=== PATIENT | female | born 1985 | race African-American/Black ===

== ENCOUNTER 2024-08-15 12:41 | Emergency (ER) | payer OTHER, SELFPAY ==
[2024-08-15] VITALS (9 sets, daily range): BP systolic 95–118; BP diastolic 47–69
--- NOTE | 2024-08-15 13:09 | ED.GENMED ---
History of Present Illness
<Jose Davis DO - Last Filed: 08/15/24 15:23>
General
Chief Complaint: Abdominal Pain
Source: patient
Exam Limitations: none
Time Seen by Provider: 08/15/24 12:57
Nursing documentation reviewed up to this point in time: agreed with
History of Present Illness
History of Present Illness:
38-year-old female presents Emergency Department complaining of pelvic pain ongoing since yesterday. She was seen at [facility] last night, and was told she has an ovarian cyst. She was told it was a hemorrhagic cyst and had ruptured.
Past History
<Jose Davis DO - Last Filed: 08/15/24 15:23>
Past History
ED Past Medical History: Other (Back pain)
ED Past Surgical History: Other ([place] teeth)
Social History
Tobacco: Non-smoker
Alcohol: None
Drug: None
Personal: Partner
Employment: Employed
Review of Systems
<Jose Davis, DO - Last Filed: 08/15/24 15:23>
Review of Systems
Allergies reviewed?: Yes
All Other Systems: Not applicable
Constitutional: Reports no symptoms
EENT: Reports no symptoms
Respiratory: Reports no symptoms
Cardiac: Reports no symptoms
ABD/GI: Reports no symptoms
: Reports other (Pelvic pain)
Musculoskeletal: Reports no symptoms
Skin: Reports no symptoms
Neurological: Reports no symptoms
Endocrine: Reports no symptoms
Hematologic/Lymphatic: Reports no symptoms
Psychiatric: Reports no symptoms
Phy Exam
<Jose Davis, DO - Last Filed: 08/15/24 15:23>
Physical Exam
Physical Exam:
Physical Exam
General: no apparent distress, not acutely ill
Neck: supple. no meningeal signs. normal posterior pharynx
Heart: s1/s2 regular rate and rhythm, no murmur. equal radial
pulses.
HEENT: Pupils equal round reactive to light, EOMI
Lungs: no acute respiratory distress. clear bilaterally
Abdomen: normal bowel sounds. Mild suprapubic tenderness, no rebound or guarding. no CVAT
Neuro: alert and oriented. no focal neurological deficits
Skin: no rash
Psychiatric: well kept. interactive and cooperative
Extremities: no edema. no calf tenderness. negative homans. good distal pulses
Course
<Jose Davis, DO - Last Filed: 08/15/24 15:23>
Orders/Labs/Results
Orders:
Orders
08/15/24 13:06
IV Insert/Care/Rem.- Treatment PRN
Pelvis & Transvaginal US [US Pelvis W Transvag Combined] Urgent
Comment:
Reason For Exam: pelvic pain, history of hemorrhagic cyst
08/15/24 13:07
Test Result ONCE
08/15/24 13:19
Complete Blood Count/With Diff Urgent
Comprehensive Metabolic Panel Urgent
HCG, Serum Qualitative Screen Urgent
08/15/24 14:19
Ketorolac [Toradol] 15 mg IV NOW STA
08/15/24 16:30
0.9% Sodium Chloride 1000 ml [Nss] 1,000 ml IV BOLUS
HYDROmorphone [Dilaudid] 0.5 mg IV NOW STA
08/15/24 18:25
HYDROmorphone [Dilaudid] 0.5 mg IV NOW STA
Simethicone [Mylicon] 80 mg PO NOW STA
Abnormal Lab Results
08/15/24
13:19
RBC 3.60 L 10^6/uL
(4.20-5.40)
Hgb 11.4 L g/dL
(12.0-16.0)
Hct 32.2 L %
(37.0-47.0)
MCH 31.7 H pg
(27.0-31.0)
Absolute Neuts (auto) 8.5 H 10^3/uL
(1.4-6.5)
Neutrophils % 80.5 H %
(42.2-75.2)
Lymphocytes % 14.7 L %
(20.5-51.1)
08/15/24 13:19
08/15/24 13:19
Vital Signs
Initial and Last Documented VS:
Initial Vital Signs
Temp Pulse Resp BP Pulse Ox
98.3 F 85 18 103/69 99
08/15/24 12:42 08/15/24 12:42 08/15/24 12:42 08/15/24 12:42 08/15/24 12:42
Last Documented Vital Signs
Temp Pulse Resp BP Pulse Ox
98.3 F 72 16 103/62 99
08/15/24 12:42 08/15/24 13:25 08/15/24 13:25 08/15/24 20:00 08/15/24 19:59
Moelt;Yannick Simons DO - Last Filed: 08/15/24 22:31>
Orders/Labs/Results
Orders:
Orders
08/15/24 13:06
IV Insert/Care/Rem.- Treatment PRN
Pelvis & Transvaginal US [US Pelvis W Transvag Combined] Urgent
Comment:
Reason For Exam: pelvic pain, history of hemorrhagic cyst
08/15/24 13:07
Test Result ONCE
08/15/24 13:19
Complete Blood Count/With Diff Urgent
Comprehensive Metabolic Panel Urgent
HCG, Serum Qualitative Screen Urgent
08/15/24 14:19
Ketorolac [Toradol] 15 mg IV NOW STA
08/15/24 16:30
0.9% Sodium Chloride 1000 ml [Nss] 1,000 ml IV BOLUS
HYDROmorphone [Dilaudid] 0.5 mg IV NOW STA
08/15/24 18:25
HYDROmorphone [Dilaudid] 0.5 mg IV NOW STA
Simethicone [Mylicon] 80 mg PO NOW STA
Abnormal Lab Results
08/15/24
13:19
RBC 3.60 L 10^6/uL
(4.20-5.40)
Hgb 11.4 L g/dL
(12.0-16.0)
Hct 32.2 L %
(37.0-47.0)
MCH 31.7 H pg
(27.0-31.0)
Absolute Neuts (auto) 8.5 H 10^3/uL
(1.4-6.5)
Neutrophils % 80.5 H %
(42.2-75.2)
Lymphocytes % 14.7 L %
(20.5-51.1)
08/15/24 13:19
08/15/24 13:19
Vital Signs
Initial and Last Documented VS:
Initial Vital Signs
Temp Pulse Resp BP Pulse Ox
98.3 F 85 18 103/69 99
08/15/24 12:42 08/15/24 12:42 08/15/24 12:42 08/15/24 12:42 08/15/24 12:42
Last Documented Vital Signs
Temp Pulse Resp BP Pulse Ox
98.3 F 72 16 103/62 99
08/15/24 12:42 08/15/24 13:25 08/15/24 13:25 08/15/24 20:00 08/15/24 19:59
<Yannick Simons DO - Last Filed: 08/15/24 22:31>
*Critical Care Note
Total Time (30-74mins, 75-104mins- exclusive of procedures): Not Applicable
<Yannick Simons DO - Last Filed: 08/15/24 22:31>
Update Note
Update Note:
Patient received at signout at 2 PM. Patient with pelvic pain that is persistent and significant. Plan at signout was to await results of ultrasound and disposition from there.
Patient's ultrasound shows good flow bilaterally with some free fluid in the pelvis.
I reevaluated the patient she continues to have significant pain. She is tearful and frustrated. She was able to pull up the results of her testing at [facility] from yesterday on her patient portal. CT of the abdomen pelvis showed mild
hemoperitoneum and complex cystic structure.
Discussed case with Dr. Jain who is on-call for gynecology. I sent images of the patient's reports from her phone to Dr. Jain. Patient's hemoglobin is essentially unchanged. Given these findings she believes the patient is stable for
outpatient management. Recommends further pain management here in the emergency room and hopefully patient will be able to go home. After some Dilaudid, IV fluids and simethicone the patient is feeling much better. We will discharge her on
oxycodone. Patient received a prescription for tramadol from [facility] which did not help her pain whatsoever.
ED Attending Note
<Jose Davis, DO - Last Filed: 08/15/24 15:23>
-
Portions of this chart may have been created with voice recognition software.� Occasional wrong word or��sound alike� substitutions may have occurred due to the inherent limitations of voice recognition software.
Discharge Plan
Departure
Patient Disposition: Home (Routine Discharge)
Date of Disposition: 08/15/24
Time of Disposition: 19:48
Patient with high blood pressure during this ER visit?: No
Condition: Good
Discharge Problem:
Pelvic pain, Hemorrhagic cyst of left ovary
Instructions: Ovarian cyst - ED discharge instructions, Abdominal Pain
Prescriptions:
New
oxycodone 5 mg tablet
5 mg PO Q6H PRN (Reason: Pain) Qty: 20 0RF
ondansetron 4 mg tablet,disintegrating
4 mg PO Q8H PRN (Reason: nausea and vomiting) 3 Days Qty: 9 0RF
No Action
methylprednisolone [Medrol ([place])] 4 MG tablets,dose pack
4 tab PO . DIRECT Qty: 1 0RF
Rx Instructions:
take as directed
cyclobenzaprine 10 MG tablet
10 mg PO TIDPRN PRN (Reason: low back pain/muscle spasm) Qty: 12 0RF
Referrals:
Lucio Gonzales MD [Family Provider] -
Activity Restrictions/Additional Instructions:
Your pelvic pain is from a hemorrhagic cyst. The blood in the intra-abdominal cavity can be quite irritating. This will take a couple days to resorb but I do believe you will start feeling better each day. Return to the emergency room if you feel
your pain is getting worse. You can take Tylenol 650 mg every 6 hours as well as ibuprofen 600 mg every 6 hours for pain. If you need additional pain medicine I have sent a prescription for oxycodone 5 mg. You can take 1 every 6 hours of that as
well. Follow-up with your [facility].
Interventions
Interventions:
*Risk Screen - Suicide Last Done: 08/15/24 12:42
*General Assessment Last Done: 08/15/24 12:42
*Neglect/Abuse Screening Last Done: 08/15/24 12:42
*ED- Fall Risk Assessment Last Done: 08/15/24 13:25
*ED COVID-19 Vaccine History Last Done: 08/15/24 12:53
*Nursing Disposition Last Done: 08/15/24 20:06
WG-Hxgikk-Xxlrqwwlmk Assessment Last Done: 08/15/24 13:23
Discharge Date and Time
Discharge Date/Time: 08/15/24 20:11
Print Language: [id number]
[2024-08-15 13:29] LABS: % Basophils 0.2 % (0-2); % Eosinophils 0.2 % (0-6); % Immature Granulocytes 0.3 % (0-0.5); % Lymphocytes 14.7 % (20.5-51.1); % Monocytes 4.1 % (1.7-9.3); % Neutrophils 80.5 % (42.2-75.2); Absolute Lymphocytes 1.6 10^3/uL (1.2-3.4); Absolute Monocytes 0.4 10^3/uL (0.1-0.6); Absolute Neutrophils 8.5 10^3/uL (1.4-6.5); Hematocrit 32.2 % (37.0-47.0); Hemoglobin 11.4 g/dL (12.0-16.0); Mean Corp Hgb Conc. 35.4 g/dL (33.0-37.0); Mean Corpuscular Hgb 31.7 pg (27.0-31.0); Mean Corpuscular Volume 89.4 fL (81.0-99.0); Mean Platelet Volume 10.2 fL (7.4-10.4); Nucleated Red Blood Cells % 0 %; Platelet Count 226 10^3/uL (130-400); Red Cell Dist. Width 12.4 % (11.5-14.5); White Blood Cell Count 10.6 10^3/uL (4.8-10.8)
[2024-08-15 13:48] LABS: ALT (SGPT) 23 U/L (0-35); AST (SGOT) 26 U/L (14-36); Albumin 4.7 g/dl (3.5-5.0); Alkaline Phosphatase 46 U/L (38-126); Blood Urea Nitrogen 17 mg/dl (7-17); Calcium 9.4 mg/dl (8.4-10.2); Carbon Dioxide 24 mmol/L (22-30); Chloride 105 mmol/L (98-107); Glucose 88 mg/dl (70-99); Potassium 4.1 mmol/L (3.5-5.1); Sodium 137 mmol/L (135-145); Total Bilirubin 0.9 mg/dl (0.2-1.3); Total Protein 7.3 g/dl (6.3-8.2); eGFR > 60.00
[2024-08-15 13:55] LABS: HCG, Serum Qualitative Screen Negative
[2024-08-15] MEDS: TORADOL 15 MG IV (14:22)
[2024-08-15] MEDS: NSS 1000 IV (16:40)
[2024-08-15] MEDS: DILAUDID 0.5 MG IV ×2 (16:40→18:29)
[2024-08-15] MEDS: MYLICON 80 MG PO (18:29)
== END 2024-08-15 20:11 | disposition home or self-care (01) ==
LOC: EMR 12:41
PROVIDERS: EMERGENCY PHYSICIAN Emergency Medicine; FAMILY PHYSICIAN Family Medicine
DX: R10.2 Pelvic and perineal pain (principal); N83.202 Unspecified ovarian cyst, left side
CPT/HCPCS: 99284; 96374; 96375; 96376; 76830; 76856; 80053; 84703; 85025